=== PATIENT | male | born 1985 | race Caucasian/White ===

== ENCOUNTER 2016-12-01 22:16 | Observation (INO) ==
[2016-12-02] MEDS ORDERED: Ondansetron ODT 4 MG TAB.RAPDIS SL PRN (00:55)
[2016-12-02] MEDS ORDERED: Acetaminophen 325 MG TABLET PO PRN (00:55)
[2016-12-02] MEDS ORDERED: Naloxone 0.4 MG/ML INJ IVP PRN (00:55)
[2016-12-02] MEDS ORDERED: *HR* LORazepam 2 MG/ML VIAL IVP PRN (01:01)
--- NOTE | 2016-12-02 01:24 | Internal Med History&Physical ---
<Vitaly Luke - Last Filed: 12/02/16 03:52> Date of Encounter: 12/02/16 Time of Encounter: 00:30 Assessment and Plan (1) Observed seizure-like activity Current visit: Yes Status: Acute Mr. Bermudez presented after an initial episode of seizure activity witnessed by his . He denies any history of seizures, neurologic disorders. - Roughly 6 episodes of 30 seconds to 1 minute rounds of full body convulsions, loss of consciousness and loss of urination - Continuing factors: Recent alcohol consumption, ingestion of significant amount of caffeine and B12, dehydration, new antibiotic use, systemic allergic reaction of unknown cause. - No seizure activity since arriving to the emergency department, patient has a Glascow score 15, and feels back to his normal self By the patient's description this sounds like complex seizure-like activity with multiple contributing factors that may have reduced his seizure threshold. - CT of the brain is without any acute abnormalities or intracranial bleeding. Plan: - Admitted to general medical floor - Seizure precautions - CMP, magnesium, phosphate, blood cultures, UDS, CBC - Ativan 2 mg IV push when necessary for seizure activity - Prednisone 40 mg by mouth daily - Benadryl 50 mg when necessary for hives and itching - Neurology consult for evaluation of an initial seizure activity. (2) Allergic reaction Current visit: Yes Status: Acute Patient describes symptoms of severe allergic reaction. Sounds like the patient has had previous episodes of urinary dysuria, diffuse itching and redness resolved by oral Benadryl. He did start taking Keflex 2 days prior for a left middle finger cellulitis whether this is a coincidence or potential cause for drug reaction is uncertain at this point. The patient is tolerated penicillins and cephalosporins medications in the past. - He did have resolution of his symptoms with Benadryl, IV steroids and Pepcid. - Specific source is unknown, patient may benefit from [facility] follow-up outpatient Qualifiers: Qualified Code(s): T78.40XA - Allergy, unspecified, initial encounter (3) Cellulitis of middle finger Current visit: Yes Status: Acute Patient slammed his middle finger roughly a week prior to developing soft tissue infection of his left middle finger. Since starting antibiotics he feels that the erythema has progressed T is developed a area of white collection under his skin, no drainage yet. He does have some pain more so with activity. Denies any fevers, chills, sweating prior to his episode today. Plan: - We will hold cephalosporins - Start TMP SMX orally for soft tissue infection with hx of MRSA skin infections. - Blood cultures Qualifiers: Qualified Code(s): L03.019 - Cellulitis of unspecified finger (4) Tobacco abuse Current visit: Yes Status: Acute Patient is a daily tobacco user. - Nicotine patch when necessary Internal Medicine - H&P: HPI Chief complaint: seizure Admitted From: Intrahospital Transfer Plans for Post Hospital Care: Home History of present illness: Mr. Bermudez is a 31 year old male with PMH of right axillary AVM was transferred from [facility] after he presented with seizure-like activity. Mr. Bermudez says that he had spent the weekend with friends and family in [place] and yesterday drank a fair amount of alcohol. He felt dehydrated his morning, drank a red bull, a monster and circumflex of vitamin B12 complex to try to kill his hangover. ( He also mentioned that earlier in the day he was developing hives, itching all over and had taken Benadryl with improvement in his hives and itching. The itching came back prior to the shower time and it taken a second dose of Benadryl. He denies any noticeable stung swelling, throat swelling. He is also on day 2 of Keflex antibiotic for a left middle finger cellulitis) He said he was not feeling the greatest a little dizzy and was going to take a cold shower. He turn the shower on and then started having tunnel vision and went back out and sat down on the bed and asked his daughter to turn off the shower. His came up to check on him and he said that the whole room went dark. His was at bedside said that he had fallen back on the bed his eyes rolled back into his head he was very diaphoretic and then started seizing full body shakes which would last 30 seconds to a minute and then it would break and then he would have another episode. She said he had roughly a total of 5-6 episodes of [id number] seizure-like activity. She mentioned that he lost bladder control and looked like he was guppy breathing. In between his seizure activity he had a period of lucency where he was very discoordinated and try to stand up to walk outside and then had a another round of seizure activity and fell to the ground. He said he came to prior to EMS arriving and when they did arrive he said that his blood pressure was low roughly 80 systolically. He said he felt short of breath and required a facial mask with 4 L nasal cannula oxygen. When arriving to [facility] emergency department he said that he had diffuse body redness, return of hives and itching for which she was given IV Solu-Medrol, Pepcid and Benadryl. After administration of this mixture his symptoms resolved and he has not had another episode since. Regarding his hives and itching, he said 2 months prior he had a similar episode of hives and itching all over his chest while working at a job site. He took Benadryl and had resolution of his symptoms. He denies any new exposures, he did not try any new foods, drinks, new detergents, plant exposures or any other exposures to note. He is unable to correlate anything with the recurrence of the symptoms. He his brother on a [employer] company in her outside frequently but occasionally do indoor work. Antibiotic exposures: Mr. Bermudez says he has had amoxicillin and penicillins in the past, he has had ceftriaxone but has never had Keflex before. He received his Keflex antibiotic 2 days ago and has had 2 doses for cellulitis of his distal middle left finger. He denies having any reactions after taking the first dose. He denies having any known allergies. He has a previous history of MRSA skin infection 2 years ago. Past Med Surg Social Fam HX - Past Medical History Medical history: other Psychiatric history: no psych history - Past Surgical History Surgical History: non-contributory, cholecystectomy, other (Cholecystectomy, ablation of right axillary AVM) - Social History Smoking Status: Current every day smoker Alcohol use: rarely Drug use: none - Family History Father Race: Living Status: Still Living Hx Family Cardiac Disorders: Yes (Heart disease) Hx Family Endocrine Disorder: Yes (Type 2 diabetes) Paternal Grandmother Living Status: Still Living Hx Family Cardiac Disorders: Yes (HTN) Paternal Grandfather Living Status: Still Living Hx Family Cardiac Disorders: Yes (HTN) Internal Medicine - H&P: Meds Acetaminophen [Tylenol] 500 mg PO Q6HR PRN 12/02/16 [History] Dicyclomine [Bentyl] 10 mg PO QAM 12/02/16 [History] Allergies No Known Allergies Allergy (Verified 03/24/16 20:53) All Systems PM: A 10-system review of systems was performed and is negative for pertinent findings except as documented above in the HPI. - Constitutional Constitutional: no chills, no fever(s), no night sweats - EENT Eyes: no change in vision, no discharge, no pain, no photophobia Ears: no ear discharge, no ear pain, no tinnitus Nose, mouth and throat: dysphagia, no nasal discharge, no neck pain, no sore throat - Cardiovascular Cardiovascular ROS IM: no chest pain, no diaphoresis, no dyspnea, no lightheadedness, no palpitations, no syncope - Respiratory Respiratory: no cough, no dyspnea, no wheezing, no excessive phlegm production - Gastrointestinal Gastrointestinal: no abdominal pain, no diarrhea, no hematemesis, no hematochezia, no melena, no nausea, no vomiting - Musculoskeletal Musculoskeletal ROS IM: no numbness, no tingling - Integumentary Integumentary IM: rash, sores, no unusual bruising - Neurological Neurological ROS: confusion, convulsions, dizziness, headache(s), lack of coordination, other visual disturbances, no focal weakness, no numbness, no tingling, no tremor(s) - Hematologic/Lymphatic Hematologic/Lymphatic: no easy bruising - Allergic/Immunologic Allergic/Immunologic: itchy eyes, uticaria, other (Diffuse erythema), no tongue swelling, no throat swelling - Constitutional Vitals: Temp Pulse Resp BP Pulse Ox 98.3 F 84 16 142/87 97 12/01/16 23:48 12/01/16 23:48 12/01/16 23:48 12/01/16 23:48 12/01/16 23:48 Exam: General: Patient alert, awake, oriented 3, interactive, in no acute distress HEENT: Normocephalic, atraumatic, pupils equal reactive to light, nasal cavity patent and open septum median position, oral mucosa moist, uvula midline, neck supple trachea midline no palpable lymphadenopathy, no thyromegaly. Chest: Symmetric bilateral correlating with respiratory effort, effort nonlabored. Cardiac: Regular rate and rhythm, positive S1 and S2. no bruits appreciated bilateral carotids, Radial pulses 2+ bilateral, posterior tibial and dorsal pedal pulses 2+ bilateral. Respiratory: Clear to auscultation all lung hi Abdomen: Soft, nontender, positive bowel sounds, no palpable masses appreciated on examination Extremities: Symmetric bilateral, bilateral lower extremities without erythema or edema patient moving all 4 extremities spontaneously. Neurologic: No focal deficits appreciated on examination. Face symmetric, muscle strength symmetric bilateral upper and lower extremities. Internal Med - H&P Results - Labs CBC & Chem 7: 12/02/16 01:21 12/02/16 01:21 <Chacorta Hilario - Last Filed: 12/02/16 06:34> Date of Encounter: 12/02/16 Internal Medicine - H&P: HPI History of present illness: Mr. Bermudez is a 31 year old male All Systems PM: A 10-system review of systems was performed and is negative for pertinent findings except as documented above in the HPI. - Constitutional Vitals: Temp Pulse Resp BP Pulse Ox 97.6 F 93 16 148/88 97 12/02/16 03:48 12/02/16 03:48 12/02/16 03:48 12/02/16 03:48 12/02/16 03:48 Internal Med - H&P Results - Labs CBC & Chem 7: 12/02/16 01:21 12/02/16 01:21 Labs: Short CBC 12/02/16 Range/Units 01:21 WBC 11.1 (4.3-11.1) K/mcL Hgb 15.5 (12.9-16.9) g/dL Hct 47.8 (37.5-50.1) % Plt Count 217 (140-400) K/mcL Neutrophils # 9.9 H (1.6-8.9) K/mcL BMP 12/02/16 01:21 Sodium 137 Potassium 4.2 Chloride 103 Carbon Dioxide 24 BUN 12 Creatinine 1.02 Glucose 208 H Calcium 9.3 Liver Function 12/02/16 Range/Units 01:21 Total Bilirubin 0.4 (0.2-1.2) mg/dL AST 25 (5-34) Units/L ALT 37 (0-55) Units/L Alkaline Phosphatase 87 (38-126) Units/L Albumin 3.8 (3.5-5.0) g/dL - Attending Attestation I examined this patient and my medical decision-making was reviewed with the Resident Physician. I agree with the documented findings, disposition and treatment plan as described
[2016-12-02 01:34] LABS: Basophils % 0.2 %; Eosinophils % 0.4 %; Hematocrit 47.8 % (37.5-50.1); Hemoglobin 15.5 g/dL (12.9-16.9); Immature Granulocytes % 0.5 % (0-4); Lymphocytes # 0.8 K/mcL (0.6-4.6); Lymphocytes % 6.9 %; Mean Corpuscular HGB Conc 32.4 g/dL (31.6-35.5); Mean Corpuscular Volume 86.4 fL (83.0-100.0); Mean Platelet Volume 10.2 fL (9.4-12.4); Monocytes # 0.3 K/mcL (0.0-1.3); Monocytes % 3.1 %; Neutrophils # 9.9 K/mcL (1.6-8.9); Platelet Count 217 K/mcL (140-400); Red Blood Count 5.53 M/mcL (4.19-5.50); Red Cell Distribution Width 13.3 % (11.5-14.5); Segmented Neutrophils % 88.9 %
[2016-12-02 01:45] LABS: Magnesium 2.1 mg/dL (1.6-2.6); Phosphorous 1.7 mg/dL (2.3-4.7)
[2016-12-02 01:49] LABS: Alanine Aminotransferase 37 Units/L (0-55); Albumin 3.8 g/dL (3.5-5.0); Albumin/Globulin Ratio 1.2 (1.1-2.2); Alkaline Phosphatase 87 Units/L (38-126); Aspartate Amino Transferase 25 Units/L (5-34); BUN/Creatinine Ratio 12 (6-26); Bilirubin,Total 0.4 mg/dL (0.2-1.2); Blood Urea Nitrogen 12 mg/dL (8-26); Calcium 9.3 mg/dL (8.6-10.8); Carbon Dioxide 24 mEq/L (19-29); Chloride 103 mEq/L (98-109); Globulin 3.1 g/dL (2.4-3.5); Glucose 208 mg/dL (70-99); Osmolality,Calculated 290 (280-300); Potassium 4.2 mEq/L (3.5-4.5); Sodium 137 mEq/L (136-145); Total Protein 6.9 g/dL (6.0-8.3); eGFR For African Americans > 60 (> 60); eGFR For Non-African Americans > 60 (> 60)
[2016-12-02] MEDS ORDERED: predniSONE 20 MG TABLET PO SCH (09:00)
[2016-12-02] MEDS ORDERED: Sulfamethoxazole/Trimeth DS 1 EACH TABLET PO SCH (09:00)
[2016-12-02] MEDS ORDERED: Pantoprazole 40 MG VIAL IVP SCH (09:00)
[2016-12-02 09:42] LABS: Bilirubin,Urine Negative (Negative); Blood,Urine Negative (Negative); Clarity,Urine Clear (Clear); Color,Urine Yellow (Yellow); Glucose,Urine (UA) 100 mg/dL (Normal); Ketones,Urine Negative (Negative); Leukocyte Esterase,Urine Negative (Negative); Nitrite,Urine Negative (Negative); PH,Urine 6.5 pH Units (5.0-8.0); Protein,Urine Negative (Neg-Trace); Specific Gravity,Urine 1.028 (1.010-1.025); Urobilinogen,Urine Normal (Normal)
[2016-12-02 09:48] LABS: Amphetamine Screen,Urine Negative ng/mL (Cutoff=1000); Barbiturate Screen,Urine Negative ng/mL (Cutoff=200); Benzodiazepines Screen,Urine Negative ng/mL (Cutoff=200); Cannabinoid Screen,Urine Negative ng/mL (Cutoff = 50); Cocaine Screen,Urine Negative ng/mL (Cutoff= 300); Opiate Screen,Urine Negative ng/mL (Cutoff=300); Phencyclidine Screen,Urine Negative ng/mL (Cutoff=25)
--- NOTE | 2016-12-02 10:32 | Event Note ---
Date of Encounter: 12/02/16 Time of Encounter: 09:30 Patient was seen and assessed at 9:30 AM. He is alert, oriented, pleasant 31- year-old male is admitted to the emergency department for observed seizure-like activity. Patient states that he attended a democrat on Friday, that if he drinks, had a few drinks, Date that he knew he had not rehydrated after drinking. He had a long drive back from [place] and states that he drank 1-/ 2 16 ounce monsters, took a B12 supplements, and took a Keflex at 10 AM. He says that he was sitting at home after driving several hours and began having itching, felt like the top of his head was hot, new use having an allergic reaction and took 50 mg of Benadryl. After a while he said that he was still having itching and he knew the Benadryl was not working yet so he went to take a shower, while he was walking into the bathroom he began having tunnel vision, and states that he lost consciousness. He reports that he feels this went on for 5-10 minutes. He was profusely diaphoretic. His reports that he had what appeared to be 3-4 seizures with jerking and what he called agonal breathing. When the episode ended he got up and was walking, became weak and fell to his knees, however did not lose consciousness again. He was not confused, he did not bite his tongue, and there was no incontinence. This was most likely vasovagal episode. He is on seizure precautions, neurology is consulted. He has Ativan 2 mg IV as needed for seizure activity. He is going to take prednisone 40 mg by mouth daily for allergic reaction and Benadryl 50 mg when necessary for hives and itching. He also has cellulitis on his L middle finger. STates that he went to urgent care and was placed on Keflex. He feels that he had an allergic reaction to the Keflex, precipitating the seizure-like activity. His finger did not improve on Keflex and he has been placed on Bactrim. Blood cultures are pending. There is no drainage, however, it is red, swollen, and painful. We will apply warm compresses to it, in addition to the Bactrim. Pain medications as ordered. Pt will need to be seen by neurology prior to discharge. His physical exam is unremarkable. He has no anterior or posterior cervical node lymphadenopathy, S1-S2 with regular rate and rhythm, no murmurs, clicks, or gallops. His lungs are clear anteriorly and posteriorly. Abdomen is soft and rounded nontender to palpation. He is ambulatory and has adequate range of motion to extremities with +2 palpable peripheral pulses. Patient will most likely be ready for discharge tomorrow.
--- NOTE | 2016-12-02 12:23 | Neurology - Consult Note ---
Date of Encounter: 12/02/16 Time of Encounter: 12:17 Assessment and Plan (1) Observed seizure-like activity Current Visit: Yes Status: Acute This could be secondary to syncopal episodes or could be provoked by his use of keflex+alcohol with dehydration. He has no significant risk factor for epilepsy. Will obtain routine EEG and will not recommend antiepileptic therapy at this time. He has nonfocal neurological examination and is asymptomatic now. Continue medical and supportive care. Patient is off keflex now and on Bactrim. History of Present Illness Chief complaint: syncope vs seizure HPI: Mr. Sanches is a 31 year old male with recent left finger injury and infection who developed syncopal vs seizure activity. Patient states that he injured his left finger at work and was given keflex and he took second dose in the morning and started feeling lightheaded and diaphoretic, and he took two benedryl and that was why he went to take a shower. He apparently loss his consciousness and his reported that he had 6 seizure like activity within 15-20 minutes. No tongue biting, no urinary incontinence. No significant post ictal confusion. Also admit that he drank whiskey the night before. Patient denies history of seizures. No family history of seizure. no history of febrile convulsions or history of head trauma with loss of consciousness. CT of head showed normal study. Past Med Surg Social Fam HX - Past Medical History Medical history: other Psychiatric history: no psych history - Past Surgical History Surgical History: non-contributory, cholecystectomy, other (Cholecystectomy, ablation of right axillary AVM) - Social History Smoking Status: Current every day smoker Smokeless Tobacco Status: No Alcohol use: rarely Drug use: none - Family History Father Race: Living Status: Still Living Hx Family Cardiac Disorders: Yes (Heart disease) Hx Family Endocrine Disorder: Yes (Type 2 diabetes) Paternal Grandmother Living Status: Still Living Hx Family Cardiac Disorders: Yes (HTN) Paternal Grandfather Living Status: Still Living Hx Family Cardiac Disorders: Yes (HTN) Medications and Allergies Acetaminophen [Tylenol] 500 mg PO Q6HR PRN 12/02/16 [History] Dicyclomine [Bentyl] 10 mg PO BID 12/02/16 [History] Allergies cephalexin [From Keflex] Adverse Reaction (Verified 12/02/16 11:12) Itching All Systems: A 10-system review of systems was performed and is negative for pertinent findings except as documented above in the HPI. Physical Examination - Vital Signs Vital Signs: Initial Vital Signs Temp Pulse Resp BP Pulse Ox 98.3 F 84 16 142/87 97 12/01/16 23:48 12/01/16 23:48 12/01/16 23:48 12/01/16 23:48 12/01/16 23:48 - Constitutional General appearance: comfortable - Neurologic Detailed motor examination: full strength in all major muscle groups Motor examination - right side: 5/5: deltoids, biceps, triceps, wrist flexion, wrist extension, coal screener, hip flexors, tibialis Anterior, quadriceps, toe extension (EHL), plantarflexion Motor examination - left side: 5/5: deltoids, biceps, triceps, wrist flexion, wrist extension, hip flexors, coal screener, quadriceps, tibialis Anterior, toe extension (EHL), plantarflexion Mental Status Examination: awake, alert, oriented to person, oriented to place, oriented to time, follows commands appropriately, answers questions appropriately, no agnosia, no aphasia, no aproxia Cranial nerve examination: PERRL, EOMI, visual ih intact, corneal reflexes brisk symmetrically, sensory to face intact, mastication intact, no facial asymmetry is present, no dysarthria, hearing is intact symmetrically, soft palate elevates bilaterally upon phonation, gag reflex intact, flexes SCM and trapezius muscles symmetrically with full power, tongue protrudes midline, no atrophy or facial fasiculations present Cerebellar examination: no dysmetria, performs finger to nose and heel to brasher symmetrically without ataxia, no gait ataxia, no truncal ataxia, no difficulty with rapid alternating movements Results - Laboratory Findings CBC and BMP: 12/02/16 01:21 12/02/16 01:21 Abnormal lab findings: Abnormal lab results RBC 5.53 M/mcL (4.19-5.50) H 12/02/16 01:21 Neutrophils # 9.9 K/mcL (1.6-8.9) H 12/02/16 01:21 Glucose 208 mg/dL (70-99) H 12/02/16 01:21 Phosphorus 1.7 mg/dL (2.3-4.7) L 12/02/16 01:21 Ur Specific [place] 1.028 (1.010-1.025) H 12/02/16 09:21 Urine Glucose (UA) 100 mg/dL (Normal) H 12/02/16 09:21 Consult Discharge Plan - Plan Referrals: Mary Morgan CNP [Primary Care Provider] - 12/09/16 3:20 pm
[2016-12-02 12:32] VITALS: BP 148/73
[2016-12-02] MEDS ORDERED: Clotrimazole/Betameth Dip CRM 45 APPL/45 GM TUBE TP SCH (14:45)
--- NOTE | 2016-12-02 16:19 | EEG/EMG/Oth Biometrics Report ---
EEG Procedure Report Date of procedure: 12/02/16 EEG Procedure: Routine EEG Procedure Note: This EEG was acquired with standard international 1020 system with EKG recording. The background EEG activity was characterized by the presence of posterior dominant alpha rhythm with the best frequency up to 11 Hz. The background activity was reactive to eye openings. Sleep stages were characterized by the presence of background fragmentation, vertex waves, K complexes, and sleep spindles. There are no electrographic seizures identified during this tracing. There are no epileptiform discharges and focal slowing noted during this recording. Photic stimulation produced and hyperventilation produced no abnormalities. Hyperventilation efforts appeared adequate due to development of diffuse background slow during and immediately after HV challenge. EKG tracing showed no significant cardiac dysrhythmia. Impression: This is essentially a normal awake and asleep EEG. Clinical Correlation: Normal EEGs, however, do not exclude epilepsy. Clinical correlation is advised.
--- NOTE | 2016-12-02 16:37 | Discharge Summary ---
Date of Encounter: 12/02/16 Time of Encounter: 09:30 - Discharge Diagnosis (1) Observed seizure-like activity Priority: Primary Status: Acute Comments: Patient most likely had a vasovagal syncope episode, seizure-like activity secondary to this probably. Patient admitted to using alcohol, Keflex, monsters , and was dehydrated. Patient has had no seizure-like activity before this event, he has had none since. EEG was a normal awake and asleep EEG. (2) Cellulitis of middle finger Priority: Primary Status: Acute Comments: Patient was treated with Keflex at urgent care for cellulitis left middle finger. Antibiotic has since been changed since there was no improvement, and he possibly had some seizure-like activity from combining alcohol and Keflex. He is now on Bactrim and will be given a prescription to take home. He will also need to apply warm compresses. If he does not see significant improvement in 24-36 hours, he will need a follow-up with urgent care or primary care. Qualifiers: Qualified Code(s): L03.019 - Cellulitis of unspecified finger (3) Allergic reaction Priority: Secondary Status: Acute Comments: Patient will be on prednisone 40 mg by mouth daily, as well as Benadryl 50 mg by mouth when necessary for itching and hives. Qualifiers: Qualified Code(s): T78.40XA - Allergy, unspecified, initial encounter (4) Tobacco abuse Priority: Secondary Status: Chronic Comments: Patient has not interested in smoking cessation at this time. He says he does not smoke that much. - Discharge Medications Prescriptions: Clotrimazole/Betameth Dip CRM [Lotrisone CRM] 1 appl TP BID 1 Days DiphenhydraMINE [Benadryl] 25 mg PO BID PRN #14 capsule PRN Reason: Itching predniSONE [PredniSONE] 10 mg PO DAILY #17 tablet Sulfamethoxazole/Trimeth DS [Bactrim Ds] 1 each PO BID #20 tablet Home Medications: Acetaminophen [Tylenol] 500 mg PO Q6HR PRN 12/02/16 [History] Clotrimazole/Betameth Dip CRM [Lotrisone CRM] 1 appl TP BID 1 Days 12/02/16 [Rx] Dicyclomine [Bentyl] 10 mg PO BID 12/02/16 [History] DiphenhydraMINE [Benadryl] 25 mg PO BID PRN #14 capsule 12/02/16 [Rx] Sulfamethoxazole/Trimeth DS [Bactrim Ds] 1 each PO BID #20 tablet 12/02/16 [Rx] predniSONE [PredniSONE] 10 mg PO DAILY #17 tablet 12/02/16 [Rx] Allergies/Adverse Reactions: Allergies cephalexin [From Keflex] Adverse Reaction (Verified 12/02/16 11:12) Itching Date of admission: 12/01/16 23:37 Primary care physician: Mary Morgan CNP Consults: 12/02/16 01:06 Consult to Neurology [CONS] Routine Consulting Provider: Neurology [facility] Reason for Consult: seizure activity at home prior to admission. Call Completed: No 12/02/16 16:28 Consult to Interpret Exam [CONS] Routine Consulting Provider: Nata Kong Consult to Interpret Exam: Interpret EEG Discharging clinician: Jackie Chen Anticipated date of discharge: 12/02/16 - Patient Status Disposition: Home, Self-Care Condition: Good Functional capacity at discharge: independent ambulation Overall status at discharge: patient is back to baseline - Discharge Instructions Follow Up With: Mary Morgan CNP [Primary Care Provider] - 12/09/16 3:20 pm Additional Instructions: Follow-up with your primary care physician in 7-10 days for follow-up evaluation. Stop taking her Keflex. Start taking the Bactrim. If you do not see significant improvement in her finger in the next 24-36 hours, seek medical treatment. Take prednisone as directed Benadryl as needed for itching and hives Lotrisone cream to feet. Return to the emergency department for any new or worsening problems. - Diet and Activity Activity: resume usual activities as tolerated Diet: advance to your usual diet Hospital course: Mr. Sanches is a 31 year old male with no prior medical history. He presented to the emergency department after what was likely a syncopal episode with some seizure-like activity after use of Keflex alcohol and large amount of caffeine. Patient states that he was in [place] at a friend's house democrat consuming a lot of alcohol Friday night, was driving home on Friday and did not rehydrate. He states that he drank 1-1/2 Monsters and took some vitamin B12 for fatigue so he could drive home. Patient states that he began having itching and feeling as if the top of his head was high when he got home. He said that he took 50 mg of Benadryl, then shortly later was going to take a shower to help relieve the itching. He said he walked into his bathroom and began having tunnel vision. He said that he went back to the bedroom and sat down and had what his reports as seizure-like activity for 5-10 minutes. He says that he was having agonal breathing. After the episode was over he got up and tried to walk into the living room and was weak and diaphoretic. He was not incontinent, he denied by his tongue, and did not have postictal period after episode. He has not had anything like this since. EEG was essentially a normal awake and asleep EEG. Head CT was negative for acute process. Neurology has followed and signed off. Patient was being treated with Keflex for cellulitis of left middle finger. Patient did not improve, and it appears that he had some seizure-like activity from mixing Keflex and alcohol. We stopped the Keflex and started Bactrim. I have encouraged him to apply warm compresses. If he does not have significant improvement in symptoms in the next 24-36 hours, he needs to follow-up either at the emergency room, urgent care, or primary care. He is being given prednisone taper, Benadryl to use when necessary hives and itching, apparently he also has athlete's foot he will be given Lotrisone cream for home, as well as prescription for Bactrim. Patient's labs and vital signs are stable and within normal limits. Patient is ready for discharge. - Time Spent with Patient Total time spent providing and/or coordinating discharge services: Less than 30 minutes - Constitutional Vitals: Temp Pulse Resp BP Pulse Ox 97.9 F 86 16 148/73 96 12/02/16 12:30 12/02/16 12:30 12/02/16 12:30 12/02/16 12:30 12/02/16 12:30 General appearance: Present: cooperative, A&O X 3, pleasant, no acute distress, answers questions appropriately - Head Head exam: Present: normal inspection - Eye Eye exam: Present: EOMI, normal appearance, conjuntiva pink. Absent: nystagmus - ENT ENT exam: Present: mucous membranes moist, normal exam, normal external ear exam - Neck Neck exam general surgery: Present: normal inspection. Absent: lymphadenopathy , tenderness - Respiratory Respiratory exam: Present: CTAB. Absent: rales, respiratory distress, rhonchi, stridor, wheezes - Cardiovascular Cardiovascular exam: Present: RRR, +S1, +S2. Absent: clicks, diastolic murmur, gallop, systolic murmur - Extremities Exam Extremities exam: Present: warm, radial pulses palpable and symetrical. Absent : pedal edema, tenderness - Skin Skin exam: Present: dry, normal color, warm. Absent: rash
== END 2016-12-02 18:30 | disposition home or self-care (01) ==
LOC: 3BNU
PROVIDERS: ADMIT Internal Medicine Endocrinology, Diabetes & Metabolism; ATTEND Registered Nurse